=== PATIENT | female | born 1980 | race Caucasian/White ===

== ENCOUNTER 2023-09-17 02:43 | Emergency (ER) | payer BC, SELFPAY ==
[2023-09-17 02:53] VITALS: BP 138/93
[2023-09-17 03:44] LABS: % Basophils 0.5 % (0-2); % Eosinophils 1.2 % (0-6); % Immature Granulocytes 0.1 % (0-0.5); % Lymphocytes 27.6 % (20.5-51.1); % Monocytes 5.7 % (1.7-9.3); % Neutrophils 64.9 % (42.2-75.2); Absolute Eosinophils 0.1 10^3/uL (0-0.7); Absolute Lymphocytes 2.1 10^3/uL (1.2-3.4); Absolute Monocytes 0.4 10^3/uL (0.1-0.6); Absolute Neutrophils 4.8 10^3/uL (1.4-6.5); Hematocrit 38.9 % (37.0-47.0); Hemoglobin 12.5 g/dL (12.0-16.0); Mean Corp Hgb Conc. 32.1 g/dL (33.0-37.0); Mean Corpuscular Hgb 25.8 pg (27.0-31.0); Mean Corpuscular Volume 80.4 fL (81.0-99.0); Nucleated Red Blood Cells % 0 %; Platelet Count 225 10^3/uL (130-400); Red Blood Cell Count 4.84 10^6/uL (4.20-5.40); Red Cell Dist. Width 14.7 % (11.5-14.5); White Blood Cell Count 7.4 10^3/uL (4.8-10.8)
[2023-09-17 04:08] LABS: Troponin I < 0.012 ng/ml
[2023-09-17 04:13] LABS: ALT (SGPT) 22 U/L (0-35); AST (SGOT) 23 U/L (14-36); Albumin 4.2 g/dl (3.5-5.0); Alkaline Phosphatase 83 U/L (38-126); Blood Urea Nitrogen 17 mg/dl (7-17); Calcium 9.7 mg/dl (8.4-10.2); Carbon Dioxide 26 mmol/L (22-30); Chloride 105 mmol/L (98-107); Glucose 122 mg/dl (70-99); Lipase 107 U/L (23-300); Potassium 3.9 mmol/L (3.5-5.1); Sodium 140 mmol/L (135-145); Total Bilirubin 0.2 mg/dl (0.2-1.3); Total Protein 7.3 g/dl (6.3-8.2); eGFR > 60.00
--- NOTE | 2023-09-17 04:25 | ED.GENMED ---
History of Present Illness
General
Chief Complaint: Chest Pain
Source: patient
Time Seen by Provider: 09/17/23 04:05
Travel History
Have you had any contact with someone who has COVID-19?: No
Do you have any symptoms of coronavirus? Fever > 100 degrees, chills, cough, shortness of breath, sore throat, loss of taste or smell, muscle aches, or headache?: Yes
Symptoms:: cough
History of Present Illness
History of Present Illness:
This patient is a very pleasant 42-year-old female presents emergency department with complaints of the gradual onset of discomfort in between her breasts radiating to the epigastric area. This started around 1 AM and lasted no more than 45 minutes
before resolving completely. This was not pleuritic in nature and she denies associated dyspnea, nausea, vomiting, diaphoresis, back pain, neck pain, jaw pain, fever, chills, lower abdominal pain, or other complaints. Patient is now completely
asymptomatic. She denies prior cardiac history. Patient states that she thinks maybe it could be related to a hiatal hernia which her mother has although patient does not have a prior diagnosis of a hiatal hernia. She last had something to eat
approximately 6 PM. Patient is in the middle of a pending divorce and describes very high anxiety in her life which she thinks may be contributing to her symptoms.
Past History
Past History
ED Past Medical History: Other (Lymphoma, sleep apnea, ADHD)
ED Past Surgical History: Other (Stem cell transplant)
Social History
Tobacco: Non-smoker
Alcohol: Occasional
Drug: None
Personal:
Living: with family
Phy Exam
Physical Exam
Physical Exam:
GENERAL: Alert , in no apparent distress
EYE: pupils equal and reactive
NECK: Supple, no significant adenopathy.
ENT: o/p clr, mmm.
CARDIAC: Regular rate and rhythm .
LUNGS: Clear breath sounds bilaterally, no acute respiratory distress, no wheezes/rales/rhonchi
ABDOMEN: Soft, without focal tenderness, no r/g, no cvat
NEUROLOGICAL: Alert and oriented, no focal neuro deficits
SKIN: Warm and dry, skin intact.
MUSCULOSKELETAL: No edema, well perfused.
PSYCH: Normal and appropriate interaction, anxious.
Scores
Heart Score for Chest Pain Patients
STEMI patient?: Not applicable
Course
Orders/Labs/Results
Orders:
Orders
09/17/23 02:58
ECG [Electrocardiogram (*1)] Urgent
Reason for Study: Chest Pain
Cardiology Consult: Unknown
EKG- Treatment ONCE
09/17/23 03:39
Complete Blood Count/With Diff Urgent
Comprehensive Metabolic Panel Urgent
Lipase Urgent
Troponin I Urgent
Abnormal Lab Results
09/17/23
03:39
MCV 80.4 L fL
(81.0-99.0)
MCH 25.8 L pg
(27.0-31.0)
MCHC 32.1 L g/dL
(33.0-37.0)
RDW 14.7 H %
(11.5-14.5)
Creatinine 0.5 L mg/dL
(0.6-1.0)
Glucose 122 H mg/dl
(70-99)
09/17/23 03:39
09/17/23 03:39
Vital Signs
Initial and Last Documented VS:
Initial Vital Signs
Temp Pulse Resp BP Pulse Ox
97.8 F 93 20 138/93 100
09/17/23 02:53 09/17/23 02:53 09/17/23 02:53 09/17/23 02:53 09/17/23 02:53
Last Documented Vital Signs
Temp Pulse Resp BP Pulse Ox
97.8 F 93 20 138/93 100
09/17/23 02:53 09/17/23 02:53 09/17/23 02:53 09/17/23 02:53 09/17/23 02:53
*Critical Care Note
Total Time (30-74mins, 75-104mins- exclusive of procedures): Not Applicable
Update Note
Update Note:
Patient presents to the Emergency Department with chest pain
Number and Complexity of Problems Addressed at the Encounter
� Chronic conditions affecting care:
� Acute Exacerbation and/or Progression of Chronic Illness:
� Differential Diagnosis includes: But not limited to anxiety, ACS, cholelithiasis, pancreatitis, etc. etc.
Amount and/or Complexity of Data to be Reviewed and Analyzed
� I performed an independent evaluation of and my interpretation is:
EKG:
CT:
Xrays:
Laboratory Studies: Generally unremarkable
Other:
� Review of other/old records reveals:
� Clinical information was obtained by an independent historian:
� Prescriptions/Medications Considered but not given:
� Further testing considered but not performed:
Risk of Complications and/or Morbidity or Mortality of Patient Management
� Social determinants of health affecting care:
� Discussion with other providers (PCP, Hospitalists, Consultants, etc):
� Escalation of care including admission/observation vs risk of discharge considered: 4:28 AM patient remains asymptomatic. She is very eager to go home as her mother and children are waiting in the car and she is asymptomatic,
she strongly feels that her symptoms are related to anxiety and says she just wanted to 'be sure I am not having a heart attack'. Did discuss with patient other possibilities (nonurgent) such as HH, cholelithiasis, etc that she wouldlike to work up
as outpt. Highly doubt acs...atypical sxs, unremarkable ecg, min risk factors, etc. D/w pt import of f/u and reasons to rted.
ED Attending Note
-
Portions of this chart may have been created with voice recognition software.� Occasional wrong word or��sound alike� substitutions may have occurred due to the inherent limitations of voice recognition software.
Discharge Plan
Departure
Patient Disposition: Home (Routine Discharge)
Date of Disposition: 09/17/23
Time of Disposition: 04:29
Patient with high blood pressure during this ER visit?: Yes
Discharge Problem:
Chest pain
Instructions: Chest Pain PCP Follow Up, BLOOD PRESSURE
Prescriptions:
No Action
Adderall
15 mg PO DAILY
dextroamphetamine-amphetamine [Adderall XR] 30 mg Capsule,Extended Release 24hr
30 mg PO DAILY
Referrals:
Umberto Spring DO [Family Provider] - Follow up in 2-3 days
Activity Restrictions/Additional Instructions:
IF YOU DEVELOP RECURRENT/NEW PAIN, ANY TROUBLE BREATHING, FEVER, VOMITING, DIZZINESS, OR OTHER WORRISOME SIGNS, GO TO THE ER IMMEDIATELY!
Interventions
Interventions:
*Risk Screen - Suicide Last Done: 09/17/23 02:53
*General Assessment Last Done: 09/17/23 02:53
*Neglect/Abuse Screening Last Done: 09/17/23 02:53
ED- Fall Risk Assessment Last Done: 09/17/23 02:53
*ED COVID-19 Vaccine History Last Done: 09/17/23 02:53
Discharge Date and Time
Print Language: POLISH
[2023-09-17 04:41] VITALS: BP 119/77
== END 2023-09-17 04:42 | disposition home or self-care (01) ==
LOC: EMR 02:43
PROVIDERS: EMERGENCY PHYSICIAN Emergency Medicine; FAMILY PHYSICIAN Family Medicine
DX: R07.89 Other chest pain (principal); R10.13 Epigastric pain; R03.0 Elevated blood-pressure reading, without diagnosis of hypertension; F41.9 Anxiety disorder, unspecified; Z63.5 Disruption of family by separation and divorce; G47.30 Sleep apnea, unspecified; F90.9 Attention-deficit hyperactivity disorder, unspecified type; Z85.72 Personal history of non-Hodgkin lymphomas; Z94.84 Stem cells transplant status; Z88.7 Allergy status to serum and vaccine
CPT/HCPCS: 99283; 80053; 83690; 84484; 85025; 93005

== ENCOUNTER 2025-02-11 17:29 | Emergency (ER) | payer OTHER, SELFPAY ==
[2025-02-11 17:40] VITALS: BP 145/88
--- NOTE | 2025-02-11 18:20 | ED.GENMED ---
History of Present Illness
General
Chief Complaint: Throat Problem
Time Seen by Provider: 02/11/25 18:12
History of Present Illness
History of Present Illness:
44-year-old female presents to the emergency department for evaluation of difficulty swallowing and sore throat for the past 4 to 5 days. She has a very muffled voice and significant difficulty with swallowing. Saw her primary care physician who
then referred her to the ED due to concern for peritonsillar abscess. No fevers or vomiting.
Past History
Past History
ED Past Medical History: Other (Lymphoma, sleep apnea, ADHD)
ED Past Surgical History: Other (Stem cell transplant)
Social History
Tobacco: Non-smoker
Alcohol: Occasional
Drug: None
Personal:
Living: with family
Review of Systems
Review of Systems
Allergies reviewed?: Yes
All Other Systems: ROS reviewed and negative except as documented in HPI and ROS
Phy Exam
Physical Exam
Physical Exam:
GEN: Well appearing, NAD, WDWN
HEENT: Moderate trismus noted, severe deviation of the uvula to the left with prominent swelling to the right peritonsillar region, palpable superior cervical adenopathy bilaterally
Cardiac: Tachycardic, regular
Lung: No respiratory distress, no tachypnea
MSK: No gross deformity or injuries
Skin: Good color, no pallor or jaundice, no rashes
Neuro: AO x3, moves all extremities freely
Psych: Calm, cooperative
Course
Orders/Labs/Results
Orders:
Orders
02/11/25 18:19
CT Neck With Iv Contrast Urgent
Comment:
Reason For Exam: dysphagia, suspect KNUCKLE STRAP SEWER
0.9% Sodium Chloride 1000 ml [Nss] 1,000 ml IV BOLUS
Dexamethasone Sod Phosphate [Decadron] 10 mg IV NOW STA
Ketorolac [Toradol] 15 mg IV NOW STA
Test Result ONCE
02/11/25 18:20
Ampicillin/Sulbactam 3 G [Unasyn] 3 gm 0.9% Sodium Chloride 100 ml [Nss] 100 ml IV NOW
02/11/25 18:29
Complete Blood Count/With Diff Urgent
Comprehensive Metabolic Panel Urgent
HCG, Serum Qualitative Screen Urgent
02/11/25 19:01
Ampicillin/Sulbactam 3 G [Unasyn] 3 gm 0.9% Sodium Chloride 100 ml [Nss] 100 ml IV NOW
02/11/25 20:19
Fentanyl Citrate/Pf [Sublimaze] 75 mcg IV NOW STA
02/11/25 21:26
Wound Culture [Wound/Abscess/Other Culture] Urgent
JOVANNI Source: Abscess
Specimen Description:
Date Specimen was Collected: 02/11/25
Time Specimen was Collected: 21:24
Comment: Peritonsillar
Abnormal Lab Results
02/11/25
18:29
WBC 17.1 H 10^3/uL
(4.8-10.8)
MCH 25.3 L pg
(27.0-31.0)
MCHC 30.7 L g/dL
(33.0-37.0)
RDW 14.6 H %
(11.5-14.5)
Abs Immat Gran (auto) 0.1 H 10^3/uL
(0-0.05)
Absolute Neuts (auto) 14.4 H 10^3/uL
(1.4-6.5)
Absolute Monos (auto) 0.8 H 10^3/uL
(0.1-0.6)
Neutrophils % 83.9 H %
(42.2-75.2)
Lymphocytes % 10.2 L %
(20.5-51.1)
Glucose 112 H mg/dl
(70-99)
02/11/25 18:29
02/11/25 18:29
Vital Signs
Initial and Last Documented VS:
Initial Vital Signs
Temp Pulse Resp BP Pulse Ox
98.5 F 88 18 145/88 98
02/11/25 17:40 02/11/25 17:40 02/11/25 17:40 02/11/25 17:40 02/11/25 17:40
Last Documented Vital Signs
Temp Pulse Resp BP Pulse Ox
98.5 F 111 16 121/73 96
02/11/25 17:40 02/11/25 21:15 02/11/25 21:15 02/11/25 21:00 02/11/25 21:30
Procedures
Incision/Drainage/Joint Aspiration
Aspiration peritonsillar abscess:
Anethesia: other (Topical benzocaine 3 cc lidocaine with epinephrine)
Type of procedure: aspiration
Nature of site: other (Peritonsillar abscess, right)
Description of abscess: less than 3cm
Loculations broken up: No
How much fluid was obtained?: number in mls (8 cc)
Fluid description: purulent
MDM/Problems Addressed
MDM/Problems Addressed:
Imaging reveals expected peritonsillar abscess. Patient underwent bedside aspiration with good results, tolerated well with no complications. Will start Augmentin and steroids, communicated with ENT for coordination of outpatient follow-up
*Pulse Oximetry
SaO2: 98
Oxygen Mode of Delivery: Room air
Patient hypoxic: no
*Critical Care Note
Total Time (30-74mins, 75-104mins- exclusive of procedures): Not Applicable
ED Attending Note
-
Portions of this chart may have been created with voice recognition software.� Occasional wrong word or��sound alike� substitutions may have occurred due to the inherent limitations of voice recognition software.
Discharge Plan
Departure
Patient Disposition: Home (Routine Discharge)
Date of Disposition: 02/11/25
Time of Disposition: 21:20
Patient with high blood pressure during this ER visit?: No
Discharge Problem:
Abscess, peritonsillar
Instructions: Peritonsillar abscess
Prescriptions:
New
amoxicillin-pot clavulanate 875-125 mg tablet
1 tab PO BID Qty: 20 0RF
prednisone 20 mg tablet
40 mg PO DAILY 5 Days Qty: 10 0RF
No Action
dextroamphetamine-amphetamine [Adderall XR] 20 mg Capsule,Extended Release 24hr
40 mg PO DAILY
dextroamphetamine-amphetamine [Adderall] 20 mg Tablet
20 mg PO DAILYPRN PRN (Reason: adhd)
Zepbound 12.5 mg/0.5 mL Solution
12.5 mg SC QWEEK
ibuprofen [Advil] 200 mg Tablet
400 mg PO Q8HPRN PRN (Reason: mild pain)
Referrals:
Umberto Spring DO [Family Provider, Family Practice]
Jin Pettit DO [Active, ENT] - Follow up in 2-3 days
Interventions
Interventions:
*Risk Screen - Suicide Last Done: 02/11/25 17:40
*General Assessment Last Done: 02/11/25 21:35
*Neglect/Abuse Screening Last Done: 02/11/25 17:40
*ED- Fall Risk Assessment Last Done: 02/11/25 21:35
*ED COVID-19 Vaccine History Last Done: 02/11/25 21:35
*ED Influenza Vaccine History Last Done: 02/11/25 21:35
*Nursing Disposition Last Done: 02/11/25 21:36
ED-EENT Assessment Last Done: 02/11/25 20:30
ED- Pulmonary Assessment Last Done: 02/11/25 21:33
Discharge Date and Time
Discharge Date/Time: 02/11/25 21:38
Print Language: [id number]
[2025-02-11] MEDS: NSS 1000 IV (18:31)
[2025-02-11] MEDS: DECADRON 10 MG IV (18:31)
[2025-02-11] MEDS: TORADOL 15 MG IV (18:34)
[2025-02-11 18:43] LABS: Hematocrit 40.1 % (37.0-47.0); Hemoglobin 12.3 g/dL (12.0-16.0); Mean Corp Hgb Conc. 30.7 g/dL (33.0-37.0); Mean Corpuscular Volume 82.3 fL (81.0-99.0); Nucleated Red Blood Cells % 0 %; Platelet Count 223 10^3/uL (130-400); Red Cell Dist. Width 14.6 % (11.5-14.5)
[2025-02-11 18:53] LABS: HCG, Serum Qualitative Screen Negative
[2025-02-11 19:00] LABS: ALT (SGPT) 22 U/L (0-35); AST (SGOT) 19 U/L (14-36); Albumin 3.9 g/dl (3.5-5.0); Alkaline Phosphatase 100 U/L (38-126); Blood Urea Nitrogen 10 mg/dl (7-17); Calcium 9.3 mg/dl (8.4-10.2); Carbon Dioxide 28 mmol/L (22-30); Chloride 104 mmol/L (98-107); Glucose 112 mg/dl (70-99); Potassium 4.1 mmol/L (3.5-5.1); Sodium 136 mmol/L (135-145); Total Protein 7.4 g/dl (6.3-8.2); eGFR > 60.00
[2025-02-11 19:17] VITALS: BP 127/84
[2025-02-11 20:09] VITALS: BP 133/75
[2025-02-11] MEDS: UNASYN IV (20:10)
[2025-02-11 21:00] VITALS: BP 121/73
== END 2025-02-11 21:38 | disposition home or self-care (01) ==
LOC: EMR 17:29
PROVIDERS: Physician Assistant; EMERGENCY PHYSICIAN Emergency Medicine; FAMILY PHYSICIAN Family Medicine
DX: J36 Peritonsillar abscess (principal); R07.0 Pain in throat; G47.30 Sleep apnea, unspecified; F90.9 Attention-deficit hyperactivity disorder, unspecified type; Z85.72 Personal history of non-Hodgkin lymphomas
CPT/HCPCS: 99284; 42700; 96365; 96375; 96361; 70491; 80053; 84703; 85025; 87070; 87077; 87147; 87205; Q9967